=== PATIENT | female | born 1995 | race Hispanic/Latino ===

== ENCOUNTER 2017-10-19 10:12 | Inpatient (IN) | payer MEDICAID, OTHER, SELFPAY ==
--- NOTE | 2017-10-19 06:39 | PDOC.LDHP ---
Labor and Delivery H&P Chief complaint: scheduled section HPI: 22 yo @36.3 wks here for a scheduled c section 2/2 cholestasis of . Pt also had a primary cs done with first baby in [place], unknown reason, which was at 38 weeks and the baby was 5 pounds at that time. She denies VB, LOF, dysuria, discharge; endorses good movement. Current gestational age (weeks): 36 (36.3) Due date: 11/13/17 Dating criteria: second trimester ultrasound (20 wk sono; transfer of care from [place] when pt was ~ 26 wks) Grav: 2 Para: 1 OB History Details: 06/06/2015 cs @ 38 wks; 5 lb Current complications: other (cholestasis of ) Abnormal US findings: No (18% hadlock; fundal placenta) Previous surgical history: other (prior cs, unknown uterine incision) Social history: none - OB Labs Antibody Screen: negative HIV: negative RPR: positive HEPSAg: negative 1 hour GCT: negative GBS: negative Additional Labs: zika negative dengue fever negative urine culture negative Pap NILM on 08/20 HPV negative gonorrhea negative chlamydia negative CMP: AT 256 Hepatitis panel: Alk phosph: 247 Hep A total antibody Reactive, but IgM non-reactive--c/w past exposure or vaccination; no evidence of current acute hep a infection Hep C nonreactive Bile acids 11 - Assessment L&D Assessment: scheduled repeat section - Plan Plan: to OR for section, informed consent obtained, anesthesia consult for pain management <Abby Ordonez - Last Filed: 10/19/17 06:54> Current medications: pre- vitamins Previous surgical history: other (prior cs, LTCS) - Physical Exam Vital signs reviewed and normal: yes General: NAD, resting Heart: RRR Lungs: nonlabored breathing Abdomen: NTTP Extremeties: no edema FHT: category 1 (Baseline in the 130s, moderate variability, accels present, no decels) - OB Labs Blood type: O RH: positive - Plan -: This is a 22 yo at 36.3 weeks Cholestasis with associated puritis -We are admitting to L&D for rLTCS. We will have neonatology present at the time of delivery for any resuscitative measures that are needed. <Carlos Manuel Mcdermott - Last Filed: 10/19/17 11:48> Allergies/Adverse Reactions: Allergies Allergy/AdvReac Type Severity Reaction Status Date / Time No Known Allergies Allergy Verified 10/19/17 11:26
[~2017-10-19 10:12] MED LIST: Acetaminophen 500 MG TAB PO PRN; Bicitra 30 ML UDCUP PO SCH; CEFAZOLIN/Water 2 GM/20 ML SYRINGE SLOW IVP SCH; Ondansetron HCl/PF 4 MG/2 ML Vial IVP PRN; Promethazine HCl 25 MG/ML VIAL IM PRN
[2017-10-19 11:16] LABS: Hemoglobin 12.1 g/dL (12.0-16.0); Mean Corpuscular HGB CONC 34.3 g/dL (32.0-36.0); Mean Corpuscular Hemoglobin 30.5 pg (27.0-31.0); Mean Platelet Volume 9.6 fL (7.4-10.4); Platelet Count 170 thou/uL (130-400); RBC Distribution Width 12.3 % (11.5-14.5); Red Blood Cell (RBC) Count 3.95 mill/uL (4.20-5.40); White Blood Cell (WBC) Count 8.6 thou/uL (4.8-10.8)
[2017-10-19] MEDS ORDERED: Oxytocin 10 UNITS/ML VIAL ONE ×2 (11:33→13:44)
[2017-10-19] MEDS ORDERED: Bupivacaine 0.75% W/DEXTROSE 8.25% 2 ML AMP ONE (11:34)
[2017-10-19] MEDS ORDERED: Morphine PF 1 MG/ML SYR ONE (11:34)
[2017-10-19] MEDS ORDERED: Lidocaine 1% PF 5 ML VIAL ONE (11:35)
[2017-10-19] MEDS ORDERED: Ondansetron HCl/PF 4 MG/2 ML Vial ONE ×2 (11:39→14:48)
[2017-10-19 11:54] LABS: HBSAg Index 0.17 S/CO (0-0.99); Hep B Surf Ag Non-Reactive S/CO (NonReactive); Syphilis Antibody Nonreactive (Nonreactive); Syphilis Antibody Index 0.07 S/CO (<1.00 Non-Reactive)
[2017-10-19] MEDS ORDERED: ePHEDrine/0.9% NaCl/PF SYRINGE 50 mg/10 ml ONE (11:57)
[2017-10-19] MEDS ORDERED: Midazolam HCl 2 mg/2 ml Vial ONE (12:58)
[2017-10-19] MEDS ORDERED: Naloxone HCl 0.4 mg/ml Vial IVP PRN ×2 (13:16)
[2017-10-19] MEDS ORDERED: Eucerin (Mineral Oil/Petrolatum,White) 30 gm Jar TOP PRN (13:16)
[2017-10-19] MEDS ORDERED: diphenhydrAMINE 50 MG/ML VIAL IVP PRN (13:16)
[2017-10-19] MEDS ORDERED: Promethazine HCl 25 MG SUPP PR PRN (13:16)
[2017-10-19] MEDS ORDERED: Naloxone HCl 0.4 mg/ml Vial IV PRN (13:16)
[2017-10-19] MEDS ORDERED: Ondansetron HCl/PF 4 MG/2 ML Vial IVP PRN (13:16)
[2017-10-19] MEDS ORDERED: Ketorolac Tromethamine 30 MG/ML VIAL IVP PRN (13:16)
[2017-10-19] MEDS ORDERED: Promethazine HCl 25 MG/ML VIAL IM PRN (13:16)
[2017-10-19] MEDS ORDERED: Communication Order-Pharmacy FS SCH (13:30)
[2017-10-19] MEDS ORDERED: Acetaminophen 325 MG TAB PO PRN (13:40)
[2017-10-19] MEDS ORDERED: Adacel (T-DAP) 0.5 ML VIAL IM ONE (13:40)
[2017-10-19] MEDS ORDERED: diphenhydrAMINE 25 MG CAP PO PRN (13:40)
[2017-10-19] MEDS ORDERED: Ketorolac Tromethamine 30 MG/ML VIAL ONE (15:07)
[2017-10-19] MEDS ORDERED: Ibuprofen 800 MG TAB PO SCH (16:30)
--- NOTE | 2017-10-19 17:46 | PDOC.OPDEL ---
OB Operative/Delivery Note Delivery Dr/Surgeon: Maggie Ordonez Assist: Attending: Pre-Delivery Diagnosis: medically indicated induction (cholestasis of ) Procedure/Post Delivery Dx: repeat low transverse CS Weeks gestation: 36 (36.3) Anesthesia: spinal - Findings A Sex: female - 1 min: 9 - 5 min: 9 - Additional Findings/Plan Placenta delivered: spontaneous findings: low transverse hysterotomy without extension Estimated blood loss: 700 Compilations/Other Findings: Date of Procedure:10/19/2017 Resident Surgeon: Dr. Ordonez Utility Aircrewman Surgeon: Dr. Serrano Attending Surgeon: Dr. Cornejo Procedure: Repeat low transverse caesarean section Preoperative Diagnosis: 1)Term intrauterine 2)Cholestasis of 3)Previous Postoperative Diagnosis: 1)Term intrauterine 2)Cholestasis of 3)Previous Anesthesia: spinal Indications: The patient is a 22 year old G2,P1001 female at 36.3 weeks gestation who presents for a repeat scheduled 2/2 cholestasis of . Procedure in Detail: After risks, benefits, and alternatives were explained to the patient, she gave informed consent. Pre-operative antibiotics included Cefazolin 2 gram IV. The patient was taken to the operating room and spinal anesthesia was initiated. She was placed in the supine position with a left tilt and prepped and draped in usual sterile fashion. A Pfannenstiel incision was made with a scalpel and carried down to the level of the fascia which was sharply nicked. The fascial cut was extended bilaterally with Arriaga sissors. The inferior and superior edges of the cut fascial edges were elevated with Mamie clamps and the underlying rectus muscles were sharply and bluntly dissected free. The recti were divided digitally and retracted manually. The peritoneum was entered bluntly and retracted manually. Asael-O retractor placed. Bladder flap was created with Metzenbaum scissors. A low transverse score was made with the scalpel and the uterus was entered in the midline with the scalpel. Clear fluid was seen. The hysterotomy was extended manually. The was noted to be vertex and was easily delivered by fundal pressure. Mouth and nares were bulb suctioned. Cord clamped and cut and grossly normal male/female infant was handed to waiting nurse. Cord blood was obtained. Placenta was manually extracted, found to be intact with 3 vessel cord and discarded. The uterus was externalized and the endometrium was curetted with a dry lap. The bladder blade was replaced and the uterus was closed with a running locking #1 Monocryl suture. Following this hemostasis was noted. The abdomen was irrigated with saline and suctioned free of clots. The uterus was internalized and the hysterotomy was again noted to be hemostatic. The fascia was closed with a running non-locking 0-Vicryl suture. The subcutaneous tissue was irrigated and there were no bleeders. The subcutaneous tissue was closed with 4 simple interrupted 2-0 plain sutur. The skin was approximated with adri and a pressure dressing was placed. All counts were correct. The patient tolerated the procedure well and was taken to the recovery room in stable condition. Estimated Blood Loss: 910 ml Complications: None Specimens: Cord blood sent to lab for blood type Findings: Grossly normal female infant with apgars of 9 and 9. Grossly normal placenta with 3 vessel cord discarded. Drains: Couch to gravity draining clear urine. UOP: 700ml Post delivery plan: routine recovery
[2017-10-19] MEDS: Lactated Ringer's 1,000 ML IV SCH (21:55)
[2017-10-20] MEDS ORDERED: Acetaminophen/Codeine 30-300mg Tablet PO PRN (01:30)
[2017-10-20] MEDS: Acetaminophen/Codeine 30-300mg Tablet PO PRN ×2 (03:01→08:49)
[2017-10-20 05:47] LABS: Mean Corpuscular HGB CONC 34.5 g/dL (32.0-36.0); Mean Corpuscular Hemoglobin 30.8 pg (27.0-31.0); Mean Corpuscular Volume 89.2 fL (78.0-98.0); Platelet Count 153 thou/uL (130-400); RBC Distribution Width 12.2 % (11.5-14.5); Red Blood Cell (RBC) Count 3.24 mill/uL (4.20-5.40); White Blood Cell (WBC) Count 10.7 thou/uL (4.8-10.8)
--- NOTE | 2017-10-20 07:55 | PDOC.PP ---
Post Progress Note Post Day #: 1 Subjective: 22 yo f now P2002 s/p repeat low transverse section @36.3wks 2/ 2 cholestasis of . Pt endorses mild bleeding, mininal pain, and states she has ambulated to the bathroom and tolerated clears yesterday. she was anout to eat breakfast. PO intake tolerated: yes Flatus: yes Ambulation: yes Vital Signs (12 hours) Temp Pulse Resp BP 10/20/17 04:15 98.6 F 54 L 18 10/20/17 02:00 18 10/20/17 00:00 98.8 F 58 L 20 114/56 L 10/19/17 22:13 18 10/19/17 20:30 98.5 F 54 L 20 126/63 Weight Weight 46.266 kg - Physical Examination General: NAD Cardiovascular: no m/r/g, RRR Respiratory: clear to auscultation bilaterally, non-labored breathing Abdominal: + bowel sounds, lochia (minimal), appropriately TTP Skin: CS incision dry & intact, no rash Neurological: no gross focal deficits Psychiatric: A&Ox3, normal affect Result Diagrams: 10/20/17 04:55 Additional Labs: Post Labs Blood Type O POSITIVE 10/19/17 11:06 Hep Bs Antigen Non-Reactive S/CO (NonReactive) 10/19/17 11:06 (1) delivery, delivered Code(s): O60.10X0 - LABOR W DELIVERY, UNSP TRIMESTER, UNSP Status: Acute (2) Cholestasis during Code(s): O26.619 - LIVER AND BILIARY TRACT DISORD IN , UNSP TRIMESTER; K83.1 - OBSTRUCTION OF BILE DUCT Status: Acute - Assessment/Plan 22 yo now 2000 s/p repeat low transverse cs at 36.3wks 2/2 cholestasis of . 1.)sIUP delivered at 36.6wks d/t cholestasis of . - encourage ambulation - advance diet as tokerated today. - pain controlled with T3 prn and motrin scheduled. - passing flatus, cabello dcd, has not stooled yet. continue to monitor I/Os. - H/H 12->10/35->28 2.) maternal hx of cholestasis of - -denies itching this am
[2017-10-20] MEDS: Ibuprofen 800 MG TAB PO SCH ×4 (08:50→21:49)
[2017-10-20] MEDS: Prenatal Vitamin 1 TAB PO SCH (08:50)
[2017-10-20] MEDS: Docusate Calcium (SURFAK) 240 MG CAP PO SCH ×3 (08:51→21:49)
[2017-10-20] MEDS: Ferrous Sulfate 325 MG TAB PO SCH ×3 (08:57→23:07)
[2017-10-20 13:38] VITALS: BMI 17.6
[2017-10-20] MEDS: Lactated Ringer's 1,000 ML IV SCH ×3 (15:21→19:20)
[2017-10-21] MEDS: Simethicone Chewable 80 MG TAB PO PRN ×2 (02:09→17:51)
[2017-10-21] MEDS: Lactated Ringer's 1,000 ML IV SCH (03:55)
[2017-10-21] MEDS: Ibuprofen 800 MG TAB PO SCH ×2 (06:04→14:22)
--- NOTE | 2017-10-21 08:00 | PDOC.PP ---
Post Progress Note Post Day #: 2 Subjective: 22 yo now 2000 @ 36.3wks s/p repeat low transverse section. POD #2 Doing well. Minimal pain and lochia. Passing flatus. Has not stooled yet. PO intake tolerated: yes Flatus: yes Ambulation: yes Vital Signs (12 hours) Temp Pulse Resp BP BP Pulse Ox 10/21/17 04:20 98.1 F 63 14 112/56 L 10/21/17 00:40 97.9 F 73 16 101/58 L 10/20/17 20:10 98.1 F 73 14 112/66 98 Weight Admit Weight 46.72 kg Weight 46.72 kg - Physical Examination General: NAD Cardiovascular: no m/r/g, RRR Respiratory: clear to auscultation bilaterally Abdominal: + bowel sounds, lochia (minimal) Skin: CS incision dry & intact Neurological: no gross focal deficits Psychiatric: A&Ox3, normal affect Result Diagrams: 10/20/17 04:55 Additional Labs: Post Labs Blood Type O POSITIVE 10/19/17 11:06 Hep Bs Antigen Non-Reactive S/CO (NonReactive) 10/19/17 11:06 (1) delivery, delivered Code(s): O60.10X0 - LABOR W DELIVERY, UNSP TRIMESTER, UNSP Status: Acute (2) Cholestasis during Code(s): O26.619 - LIVER AND BILIARY TRACT DISORD IN , UNSP TRIMESTER; K83.1 - OBSTRUCTION OF BILE DUCT Status: Acute - Assessment/Plan 22 yo now 2000 s/p repeat low transverse cs at 36.3wks 2/2 cholestasis of . 1.)sIUP delivered at 36.6wks d/t cholestasis of . - encourage ambulation - passing flatus; has not passed stool yet - tolerating normal diet - Tylenol 3 prn pain and ibuprofen 800mg q8h scheduled - Will send prescription for ibuprofen q8h ashanti - H/H 12->->28 - prepped for discharge >48 hours 2.) maternal hx of cholestasis of - -denies itching
[2017-10-21] MEDS: Ferrous Sulfate 325 MG TAB PO SCH (08:58)
[2017-10-21] MEDS: Prenatal Vitamin 1 TAB PO SCH (08:58)
[2017-10-21] MEDS: Docusate Calcium (SURFAK) 240 MG CAP PO SCH (08:58)
[2017-10-21 12:30] VITALS: TEMP 98
[2017-10-21 12:31] VITALS: BP 120/58
[2017-10-21] MEDS: Acetaminophen/Codeine 30-300mg Tablet PO PRN (17:50)
== END 2017-10-21 17:52 | disposition home or self-care (01) | DRG 765 ==
LOC: L&D 10:12 → 3SW 16:05
PROVIDERS: ADMIT Family Medicine; ATTEND Family Medicine
PROC: 10D00Z1 Extraction of Products of Conception, Low, Open Approach (ICD-10-PCS; principal; 2017-10-19)
PROC: 10907ZC Drainage of Amniotic Fluid, Therapeutic from Products of Conception, Via Natural or Artificial Opening (ICD-10-PCS; 2017-10-19)
DX: O34.211 Maternal care for low transverse scar from previous cesarean delivery (principal); O60.14X0 Preterm labor third trimester with preterm delivery third trimester, not applicable or unspecified; K83.1 Obstruction of bile duct; O26.62 Liver and biliary tract disorders in childbirth; Z3A.36 36 weeks gestation of pregnancy; Z37.0 Single live birth
CPT/HCPCS: 36415; 51702; 85027; 86780; 86850; 86900; 86901; 87340; 90715; J1885; J2001; J2250; J2274; J2405; J2590; J3490

== ENCOUNTER 2019-03-17 05:47 | Inpatient (IN) | payer MEDICAID, OTHER, SELFPAY ==
[2019-03-17] MEDS ORDERED: HYDROcodone/Acetaminophen 5/325 mg Tablet PO PRN (06:13)
[2019-03-17] MEDS ORDERED: Ondansetron PF 4 MG/2 ML Vial IVP PRN ×2 (06:13→09:34)
[2019-03-17] MEDS ORDERED: Lanolin Ointment 7 GM TUBE TOP PRN (06:13)
[2019-03-17] MEDS ORDERED: Zolpidem Tartrate 5 MG TAB PO PRN (06:13)
[2019-03-17] MEDS ORDERED: hydrALAZINE 20 MG/ML VIAL SLOW IVP PRN ×2 (06:13→11:34)
[2019-03-17] MEDS ORDERED: Bisacodyl 10 MG SUPP PR PRN (06:13)
[2019-03-17] MEDS ORDERED: Misoprostol 200 MCG TAB PR PRN (06:13)
[2019-03-17] MEDS ORDERED: Promethazine HCl 25 MG/ML VIAL IM PRN ×3 (06:13→09:34)
[2019-03-17] MEDS ORDERED: Methylergonovine 0.2 MG/ML VIAL IM PRN (06:13)
[2019-03-17] MEDS ORDERED: Methylergonovine 0.2 MG TAB PO PRN (06:13)
[2019-03-17] MEDS ORDERED: NS / Oxytocin 40 units/1000ml 1,000 ML IV SCH (06:15)
[2019-03-17] MEDS ORDERED: CEFAZOLIN 2 GM in Premix Bag 1 BAG IVPB SCH (06:15)
--- NOTE | 2019-03-17 06:22 | PDOC.FPROB ---
Addendum entered and electronically signed by Florence Pop MD 03/17/19 07:26 : Additional problems: h/o placenta previa this : - Aware, resolved per MFM follow-up sonos. Repeat bedside US today shows anterior placenta but no previa and cephalic presentation. - Will type & cross 2U of PRBCs & have a Bakri balloon and PPH meds readily available if needed. Original Note: FMR OB H&P: HPI - History of Present Illness Chief Complaint: RCSX Indentification: 24yo @ 39.4 wks by LMP c/w 11 wk sono History of Present Illness: 24 yo F @ 39.4 wks by LMP c/w 11 wk US with Low BMI, h/o cholestasis in , h/o C/S x2, h/o SGA infants, h/o delivery 2/2 cholestasis who presents for repeat . She endorses good movement. She has had no loss of fluid or bleeding. She did state she has a greenish discharge. She has a cough, subjective fever, and headache that started yesterday. She says the headache is bi-temporal and at the back of the neck. She has not taken any medications for it. Primary Care Physician: [facility]- Florence Pop, PGY-2 FMR OB H&P: Current - Care : 3 Para: 2 Gestational age: 39.4 weeks Due date: 03/23/2019 Dating Criteria: LMP c/w 11 wk sono Total weight gain: 21 lbs - OB Labs Blood type: O RH: positive Antibody Screen: negative HIV: negative RPR: negative HepBsAg: negative Rubella: immune Quad screen: negative (Progenity negative) Urine drug screen: not done Gonorrhea: negative Chlamydia: negative 1 hour gtt: 88 GBS: positive H&H: 11.7/34.8 Platelets: 187 Additional labs: INR .9, Prothrombin 10.8, PTT 29.4 Uric Acid 3.5 Total Bile Acids 2 TSH .944 - First Trimester Ultrasound First trimester: 11 wk sono. MARITO c/w LMP - Anatomy Survey Anatomy survey: 18.5 weeks. EFW 43%, left lateral complete placent previa, no sign accreta - Additional Ultrasound Additional: [facility] 10/22/18 Growth 43%. Left lateral complete placenta previa MFM 10/1/19 25 weeks. EFW 713 g. Hadlock 35%. Right urinary tract dilatation measuring 10.9 mm MFM1 Hadlock 55%, Placent previa resolved. Isolate R urinary tract dilatation MFM 02/04/19 Hadlock 38%, Right UTD. MFM 03/04/19 Hadlock 27%. Placenta anterior lef. PLacenta previa resolved. Rt renal AP measurement is 15.2 mm. FMR OB H&P: History - Past Medical History PMH: none - OB History OB History: 10/19/17 RCsx, cholistasis of 06/06/15 Primary , failure to progress - Surgical History Sx History: C/S x2 - Social History Social History: Denies tobacco, alcohol or illicit drug use. - Family History Family History: None FMR OB H&P: Medications - Current Home Medications: Medication Instructions Recorded Confirmed Type Vit Calc,Iron,Folic 1 each PO DAILY 10/19/17 10/19/17 History [ Vitamins] Allergies/Adverse Reactions: Allergies Allergy/AdvReac Type Severity Reaction Status Date / Time No Known Allergies Allergy Verified 03/17/19 06:19 FMR OB H&P: ROS - Review of Systems General: reports: fever/chills Eyes: denies: vision changes ENT: reports: sore throat. denies: nasal congestion, rhinorrhea Cardiovascular: denies: chest pain, edema Respiratory: reports: cough. denies: congestion, shortness of breath Gastrointestinal: denies: abdominal pain, nausea, vomiting, diarrhea, constipation Genitourinary (Female): reports: vaginal discharge. denies: dysuria, vaginal bleeding, contractions Musculoskeletal: denies: pain, tenderness Neurologic: reports: headache. denies: numbness, weakness Integumentary: denies: itching, rash Hematologic/Lymphatic: denies: enlarged lymph nodes FMR OB H&P: Vital Signs - Heart Tones Baseline: 140 Variability: moderate Acceleration: absent Deceleration: absent Category: category 1 [place] contractions every: 5 minutes FMR OB H&P: Physical Exam - Physical Exam General: NAD, awake, alert and oriented HEENT: normocephalic and atraumatic, PERRLA, EOMI, MMM, normal nasal mucosa, oropharynx clear Neck: trachea midline, no LAD Heart: RRR, normal S1/S2, no murmurs/rubs/gallops, pulses present General: CTAB, no respiratory distress, good air movement, no rales/rhonchi, no wheezing Abdomen: soft, gravid, non-tender, bowel sound present Musculoskeletal: pulses present Neurological: cranial nerves II through XII intact, no focal deficit Skin: no rash Lymphatic: no unusual bruising or bleeding Psychiatric: normal mood and affect FMR OB H&P: A/P - Problem List (1) Term Current Visit: Yes Status: Acute Code(s): Z34.90 - ENCNTR FOR SUPRVSN OF NORMAL , UNSP, UNSP TRIMESTER (2) Low BMI Current Visit: Yes Status: Acute Code(s): ASU2675 - (3) Viral URI Current Visit: Yes Status: Acute Code(s): J06.9 - ACUTE UPPER RESPIRATORY INFECTION, UNSPECIFIED Disposition: 24 yo F @ 39.4 wks by LMP c/w 11 wk US with Low BMI, h/o cholestasis in , h/o C/S x2, h/o SGA infants, h/o delivery 2/2 cholestasis who presents for repeat . Term for [facility] rLTCS: - s/p C/S x2. - Ancef given & IVFs started. - Continue routine pre-C/S care. h/o C/S x2 - Aware, rLTCS today. h/o delivery 2/2 cholestasis - Aware, medically indicated delivery. Has not required PPX this . Low BMI - Aware, encouraged weight gain & increased calories for duration of . h/o cholestasis in prior - Aware, no elevated bile acids this . h/o SGA infants - Aware, mom has small body habitus. Viral URI -Cough, Sore throat, Subjective Fever, Tension ZHOU -Ordered Flu Concern for UT malformation: - Patient has been following with MFM who noted a right-sided UT dilatation. Recommended notifying Neonatology upon delivery & getting a repeat renal US on DOL #2 to determine follow-up. Discussion: Date/Time: 03/17/19 0620 This H&P was discussed with [] and [] who agree with the above documentation and plan. Addendum - Attending - Attending Attestation Date/Time: 03/17/19 0519 I personally evaluated the patient and discussed the management with Dr. Holman , Nathaniel, and Donn I agree with the History, Examination, Assessment and Plan documented above with any addition or exceptions noted below. 24 yo female at 39.4 wks by LMP/11.0 wks Plan for repeat LTCS. Patient originally had dx of placenta previa. Now resolved. MFM did not see evidence of pathology on sono. Bedside sono revealed anterior placenta. Not low lying. Cephalic presentation. Grossly normal SAMY. Will have hemorrhage cart near by with blood on hold due to slight increase in occult accreta. Borderline platelets on admission labs. Trend. SGA fetus with right sided pyelectasis. Will need renal sono. Will likely resolve. Monitor. Marcelle
[2019-03-17 06:28] VITALS: BMI 20.9
[2019-03-17 06:43] LABS: Hemoglobin 13.2 g/dL (12.0-16.0); Mean Corpuscular HGB CONC 33.6 g/dL (32.0-36.0); Mean Corpuscular Hemoglobin 28.3 pg (27.0-31.0); Mean Corpuscular Volume 84.2 fL (78.0-98.0); Mean Platelet Volume 9.4 fL (7.4-10.4); Platelet Count 153 thou/uL (130-400); Red Blood Cell (RBC) Count 4.68 mill/uL (4.20-5.40); White Blood Cell (WBC) Count 9.6 thou/uL (4.8-10.8)
[2019-03-17] MEDS: Lactated Ringer's 1,000 ML IV SCH ×2 (07:10→11:07)
[2019-03-17] MEDS ORDERED: Bicitra 30 ML UDCUP PO SCH (07:15)
[2019-03-17] MEDS ORDERED: Oxytocin 10 UNITS/ML VIAL ONE ×3 (07:17→08:32)
[2019-03-17] MEDS ORDERED: PHENYLEPHRINE-NS 100 MCG/ML 10 ML SYRINGE ONE ×2 (07:17→08:29)
[2019-03-17] MEDS ORDERED: ePHEDrine/0.9% NaCl/PF SYRINGE 50 mg/10 ml ONE ×2 (07:17→08:27)
[2019-03-17] MEDS ORDERED: Fentanyl 100 MCG/2 ML VIAL ONE (07:18)
[2019-03-17] MEDS ORDERED: MORPHINE 5 MG/10 ML PF VIAL ONE (07:19)
[2019-03-17 07:22] LABS: Syphilis Antibody Nonreactive (Nonreactive); Syphilis Antibody Index 0.12 S/CO (<1.00 Non-Reactive)
[2019-03-17 07:23] LABS: HBSAg Index 0.17 S/CO (0-0.99); Hep B Surf Ag Non-Reactive S/CO (NonReactive)
[2019-03-17] MEDS ORDERED: Ondansetron PF 4 MG/2 ML Vial ONE (07:41)
[2019-03-17] MEDS ORDERED: Methylergonovine 0.2 MG/ML VIAL ONE (08:25)
[2019-03-17] MEDS ORDERED: Metoclopramide HCl 10 MG/2 ML VIAL ONE (08:37)
[2019-03-17] MEDS ORDERED: Midazolam HCl 2 mg/2 ml Vial ONE (08:47)
[2019-03-17] MEDS ORDERED: diphenhydrAMINE 50 MG/ML VIAL IVP PRN (09:34)
[2019-03-17] MEDS ORDERED: Naloxone HCl 0.4 mg/ml Vial IVP PRN ×2 (09:34)
[2019-03-17] MEDS ORDERED: Promethazine HCl 25 MG SUPP PR PRN (09:34)
[2019-03-17] MEDS ORDERED: Ondansetron HCl/PF 4 MG/2 ML Vial IVP PRN (09:34)
[2019-03-17] MEDS ORDERED: Naloxone HCl 0.4 mg/ml Vial IV PRN (09:34)
[2019-03-17] MEDS ORDERED: Promethazine HCl 25 MG/ML VIAL SLOW IVP PRN (09:34)
[2019-03-17] MEDS ORDERED: Communication Order-Pharmacy FS SCH (09:45)
[2019-03-17] MEDS: Ferrous Sulfate 325 MG TAB PO SCH ×2 (11:08→19:06)
[2019-03-17] MEDS: Prenatal Vitamin 1 TAB PO SCH (11:08)
[2019-03-17] MEDS: Docusate Calcium (SURFAK) 240 MG CAP PO SCH (11:08)
[2019-03-17] MEDS ORDERED: Ketorolac Tromethamine 30 MG/ML VIAL ONE (11:28)
[2019-03-17] MEDS: Ketorolac Tromethamine 30 MG/ML VIAL IVP PRN (11:33)
--- NOTE | 2019-03-17 12:53 | PDOC.PP ---
Post Progress Note Post Day #: 0 Subjective: Patient s/p 4 hours after rLTCS this morning, after which she did require some Methergine. EBL of approx. 750 mL. She is resting comfortably. Says her pain has improved since being out of OR, rating 4 out of 10. Has bled to about half of a pad, no clots seen. Urine output of 300 mL prior to surgery per nursing, 200 mL while with anesthesia in OR, and 50 mL while on post- floor. There is question about whether or not bag was emptied prior to arriving on unit so UOP possibly greater volume. PO intake tolerated: yes Flatus: no Ambulation: no Vital Signs (12 hours) Temp Pulse Resp BP Pulse Ox 03/17/19 12:05 99.2 F 74 18 112/63 98 03/17/19 06:06 98.3 F 109 H 18 126/75 96 Weight Weight 48.534 kg - Physical Examination General: NAD Cardiovascular: no m/r/g, RRR Respiratory: clear to auscultation bilaterally, non-labored breathing Abdominal: + bowel sounds, no distention, appropriately TTP Fundus firm & at: level of umbilicus Extremities: negative homans (B) (no edema, pulses full and equal) Skin: CS incision dry & intact, no rash Perineum: blood filled to half of pad, no clots seen Neurological: no gross focal deficits Psychiatric: A&Ox3, normal affect Result Diagrams: 03/18/19 05:46 Additional Labs: Post Labs Blood Type O POSITIVE 03/17/19 06:34 Hep Bs Antigen Non-Reactive S/CO (NonReactive) 03/17/19 06:34 - Assessment/Plan 24 yo F @ 39.4 wks by LMP c/w 11 wk US with Low BMI, h/o cholestasis in , h/o C/S x2, h/o SGA infants, h/o delivery 2/2 cholestasis who presents for repeat . #Term for [facility] rLTCS: - s/p C/S x2, now x3 with delivery today - Ancef given & IVFs started. - Continue routine post-C/S care. - monitor I/O, UOP, signs/sx bleeding h/o delivery 2/2 cholestasis - Aware, medically indicated delivery. Has not required PPX this . Low BMI - Aware, encouraged weight gain & increased calories for duration of . h/o cholestasis in prior - Aware, no elevated bile acids this . h/o SGA infants - Aware, mom has small body habitus. Viral URI -Cough, Sore throat, Subjective Fever, Tension ZHOU -Ordered Flu Concern for UT malformation: - Patient has been following with MFM who noted a right-sided UT dilatation. Recommended notifying Neonatology upon delivery & getting a repeat renal US on DOL #2 to determine follow-up. Dispo: Recovering well, pain well controlled. Continue routine post- care. Addendum - Attending - Attending Attestation Date/Time: 03/17/19 0414 I personally evaluated the patient and discussed the management with Dr. Martínez I agree with the History, Examination, Assessment and Plan documented above with any addition or exceptions noted below. Doing well after RLTCS. Pain controlled. Lochia appropriate. Tolerating PO. Flu swab positive for flu B. Will start tamiflu. Discussed ppx to children at home. Use mask when holding . Continue to monitor UOP. Remove bandage in AM. Marcelle
[2019-03-17] MEDS: Ibuprofen 800 MG TAB PO SCH (16:19)
[2019-03-17] MEDS: Oseltamivir 75 MG CAP PO SCH (21:18)
--- NOTE | 2019-03-17 21:56 | PDOC.OPDEL ---
OB Operative/Delivery Note Delivery Dr/Surgeon: Florence Pop MD/Mildred Weaver MD Assist: Burton Serrano DO Weeks gestation: 39 (39.4) - Additional Findings/Plan Placenta delivered: manual removal findings: low transverse hysterotomy with extension Estimated blood loss: ~ 600mL Compilations/Other Findings: Date of Procedure: 03/17/19 Resident Surgeon: Dr. Florence Pop MD Cotton Candy Maker Surgeon: Dr. Burton Serrano DO Attending Surgeon: Dr. Mildred Weaver MD Procedure: Repeat low transverse caesarean section Preoperative Diagnosis: 1)Term intrauterine 2)Previous x2 3)h/o placenta previa this , resolved 4)h/o cholestasis in prior 5)h/o SGA infants 6)Underweight/Low BMI Postoperative Diagnosis: 1)same as above 2)Previous x2 3)h/o placenta previa this , resolved 4)h/o cholestasis in prior 5)h/o SGA infants 6)Underweight/Low BMI 7)Uterine atony Anesthesia: spinal Indications: The patient is a 24 year old G3,P1102 female at 39.4 weeks gestation by LMP c/w 11 week who presents for a repeat scheduled . Procedure in Detail: After risks, benefits, and alternatives were explained to the patient, she gave informed consent. Pre-operative antibiotics included Cefazolin 2 gram IV. The patient was taken to the operating room and spinal anesthesia was initiated. She was placed in the supine position with a left tilt and prepped and draped in usual sterile fashion. A Pfannenstiel incision was made with a scalpel and carried down to the level of the fascia which was sharply nicked. The fascial cut was extended bilaterally with Arriaga sissors. The inferior and superior edges of the cut fascial edges were elevated with Mamie clamps and the underlying rectus muscles were sharply and bluntly dissected free. The recti were divided digitally and retracted manually. The peritoneum was entered bluntly and an Asael-O retractor was placed. A low transverse score was made with the scalpel and the uterus was entered in the midline with the scalpel. Clear fluid was seen. The hysterotomy was extended manually. The infant was noted to be vertex and was easily delivered by fundal pressure. Mouth and nares were bulb suctioned. Cord clamped and cut and grossly normal male was handed to waiting nurse. Cord blood was obtained. Placenta was manually extracted, found to be intact with 3 vessel cord and discarded. The uterus was externalized and the endometrium was curetted with a dry lap. Of note , upon externalization the uterus was noted to be boggy so a 0.2mg dose of methergine was given IV for uterine atony. In addition, an ~2cm right, inferior uterine incision extension was noted and repaired using a running locking #1 monocryl suture. The uterine incision was then repaired using the same suture in a similar fashion. Following this hemostasis was noted and the incision was coated with Ayla to ensure hemostasis. The abdomen was irrigated with saline and suctioned free of clots. The uterus was internalized and the hysterotomy was again noted to be hemostatic. The Asael-O retractor was removed and the fascia was closed with a running non-locking 0-PDS suture. The subcutaneous tissue was irrigated and there were no bleeders. The skin was approximated with adri and a pressure dressing was placed. All counts were correct. The patient tolerated the procedure well and was taken to the recovery room in stable condition. Estimated Blood Loss: ~600 ml Complications: 1)Uterine atony 2) ~2cm right inferior uterine incision extension, s/p repair Specimens: Cord blood sent to lab for blood type Findings: Grossly normal male with Apgars of 8 and 9. Grossly normal placenta with 3 vessel cord discarded. Drains: Couch to gravity draining clear urine Post delivery plan: routine recovery Addendum - Attending - Attending Attestation Date/Time: 03/18/19 0902 I was present and participated in the above documented procedure. Complications as listed above. Noted to have minor subcutaneous and fascial adhesions only. Ok to have repeat delivery if patient desires. Continue routine pp care. Marcelle
[2019-03-18] MEDS: Lactated Ringer's 1,000 ML IV SCH ×3 (01:01→18:33)
[2019-03-18] MEDS: Ibuprofen 800 MG TAB PO SCH ×4 (01:01→21:48)
[2019-03-18] MEDS: Docusate Calcium (SURFAK) 240 MG CAP PO SCH ×3 (01:01→21:48)
[2019-03-18] MEDS ORDERED: Sodium Chloride 0.9% 10 ML ONE ×2 (03:13→03:21)
[2019-03-18] MEDS: Ketorolac Tromethamine 30 MG/ML VIAL IVP PRN (03:17)
[2019-03-18 06:04] LABS: Hemoglobin 9.7 g/dL (12.0-16.0); Mean Corpuscular HGB CONC 31.8 g/dL (32.0-36.0); Mean Corpuscular Hemoglobin 27.2 pg (27.0-31.0); Mean Corpuscular Volume 85.7 fL (78.0-98.0); Mean Platelet Volume 8.8 fL (7.4-10.4); Platelet Count 137 thou/uL (130-400); RBC Distribution Width 14.1 % (11.5-14.5); Red Blood Cell (RBC) Count 3.56 mill/uL (4.20-5.40); White Blood Cell (WBC) Count 8.5 thou/uL (4.8-10.8)
--- NOTE | 2019-03-18 06:37 | PDOC.OBPPN ---
FMR OB PN: Subj - Interval History Hospital Day: 2 Day: 1 Chief Complaint: None Indentification: who is PP day #1 s/p rLTCS @ 39.4 WGA Interval History: NAEO. VS remained stable w/ only 758mL blood loss. Adequate UO. FMR OB PN: Obj - Maternal Vital signs: BP: 111/59 HR: 86 RR: 18 Tmax: 99.7F Pox: 98% on RA Wt: 48.5 kg - Urine output I&O: 03/16/19 03/17/19 03/18/19 06:59 06:59 06:59 Intake Total 1700 Output Total 2908 Balance -1208 - Lochia Lochia: moderate bleeding - Pain Management Pain scale: 4 Intervention: oral medication FMR OB PN: Exam - Physical Exam General: NAD, awake, alert and oriented HEENT: normocephalic and atraumatic, MMM, conjunctiva clear, grossly normal vision, grossly normal hearing Neck: supple, FROM Heart: RRR, normal S1/S2, no murmurs/rubs/gallops, pulses present, no edema General: CTAB, no respiratory distress, good air movement, no rales/rhonchi, no wheezing, no retractions Abdomen: soft, fundus(cm) (firm just above umbilicus), bowel sound present, other (appropriately tender) Musculoskeletal: FROM in all four extremities Neurological: cranial nerves II through XII intact, no focal deficit Skin: no rash, good tugor : bandage intact, incision healing well, no erythema, no edema, no drainage, appropriately tender Lymphatic: no unusual bruising or bleeding Psychiatric: intact recent and remote memory, good judgement and insight, normal mood and affect - Pelvic Exam : no discharge, no edema, normal lochia FMR OB PN: Data - Labs Lab results: Laboratory Results - last 24 hr 03/17/19 03/17/19 03/17/19 06:34 06:34 06:34 WBC 9.6 RBC 4.68 Hgb 13.2 Hct 39.4 MCV 84.2 MCH 28.3 MCHC 33.6 RDW 14.0 Plt Count 153 MPV 9.4 Syphilis IgG/IgM Ab Nonreactive Hep Bs Antigen Non-Reactive Blood Type Antibody Screen Crossmatch 03/17/19 03/18/19 06:34 05:46 WBC 8.5 RBC 3.56 L Hgb 9.7 L Hct 30.5 L MCV 85.7 MCH 27.2 MCHC 31.8 L RDW 14.1 Plt Count 137 MPV 8.8 Syphilis IgG/IgM Ab Hep Bs Antigen Blood Type O POSITIVE Antibody Screen NEGATIVE Crossmatch See Detail Flu swab + for influenza B FMR OB PN: A/P - Problem List (1) Term Current Visit: Yes Status: Acute Code(s): Z34.90 - ENCNTR FOR SUPRVSN OF NORMAL , UNSP, UNSP TRIMESTER (2) Low BMI Current Visit: Yes Status: Acute Code(s): MWC9472 - (3) Acute blood loss anemia Current Visit: Yes Status: Acute Code(s): D62 - ACUTE POSTHEMORRHAGIC ANEMIA (4) Influenza B Current Visit: Yes Status: Acute Code(s): J10.1 - FLU DUE TO OTH IDENT INFLUENZA VIRUS W OTH RESP MANIFEST (5) Post-op pain Current Visit: Yes Status: Acute Code(s): G89.18 - OTHER ACUTE POSTPROCEDURAL PAIN Disposition: 24 yo F G3 now P2103 who is PP day #1 s/p rLTCS @ 39.4 wks. PP day #1 s/p rLTCS: - s/p C/S x2, now x3 with delivery yesterday - Tolerating PO, ambulating, voiding & passing gas normally but no BM. Breast feeding well. Bleeding < period with no clots noted. Pain well controlled. Will d/c IV meds & continue only PO for today. - Continue routine post-C/S care. Acute Blood loss anemia: - H/H down from 13.2/39.4 on admission to 9.7/30.5 this AM. QBL of 758 but calculated EBL 1129mL. VS stable & patient asymptomatic. - Will start on PO iron & continue PNVs & continue to monitor VS closely. Influenza B: - Flu swab + on admission. Continue tamiflu & droplet precautions. Will give scripts for close family members including 2 other children and FOB to start as well. -Tylenol PRN for fever. Low BMI - Aware, encouraged weight gain & increased calories for duration of . h/o cholestasis in prior - Aware, no elevated bile acids this . h/o SGA infants - Aware, mom has small body habitus. Concern for UT malformation: - Patient has been following with MFM who noted a right-sided UT dilatation. Recommended notifying Neonatology upon delivery & getting a repeat renal US on DOL #2 to determine follow-up. h/o delivery 2/2 cholestasis in prior - Aware, medically indicated delivery. Has not required PPX this . Dispo: Recovering well, pain well controlled. Continue routine post- care. Anticipate possible d/c in 1-2 days pending patient & infant's clinical course. Discussion: Date/Time: 03/18/19 6650 This H&P was discussed with Dr. Weaver who agrees with the above documentation and plan. Addendum - Attending - Attending Attestation Date/Time: 03/18/19 1212 I personally evaluated the patient and discussed the management with Dr. Pop I agree with the History, Examination, Assessment and Plan documented above with any addition or exceptions noted below. PPD/POD#1 Patient doing well. No acute changes overnight. Tolerating tamiflu well. Breast feeding well. Concerned about colostrum. Reassurance provided. Encouraged good hydration. Incision healing well. Afshan in place. Lochia appropriate. Pain controlled. Continue routine pp care. Marcelle
[2019-03-18] MEDS: Ferrous Sulfate 325 MG TAB PO SCH ×2 (09:24→18:21)
[2019-03-18] MEDS: Prenatal Vitamin 1 TAB PO SCH (09:24)
[2019-03-18] MEDS: Oseltamivir 75 MG CAP PO SCH ×2 (09:24→21:48)
[2019-03-18] MEDS: HYDROcodone/Acetaminophen 5/325 mg Tablet PO PRN (18:27)
[2019-03-19] MEDS: Ibuprofen 800 MG TAB PO SCH ×3 (06:20→22:32)
--- NOTE | 2019-03-19 07:50 | PDOC.OBPPN ---
FMR OB PN: Subj - Interval History Hospital Day: 3 Day: 2 Chief Complaint: None Indentification: 24YO who is PP day #2 s/p rLTCS @ 39.4 weeks Interval History: NAEO. Patient reports she is feeling well. Pain well controlled. FMR OB PN: Obj - Maternal Vital signs: BP: 110/75 HR: 91 RR: 20 Tmax: 98.6F Pox: 97% on RA Wt: 48 kg - Urine output I&O: 03/18/19 03/19/19 03/20/19 06:59 06:59 06:59 Intake Total 1700 3400 Output Total 2908 3900 Balance -1208 -500 - Lochia Lochia: minimal bleeding - Pain Management Pain scale: 4 Intervention: oral medication FMR OB PN: Exam - Physical Exam General: NAD, awake, alert and oriented HEENT: normocephalic and atraumatic, MMM, conjunctiva clear, grossly normal vision, grossly normal hearing Neck: supple Heart: RRR, normal S1/S2, pulses present, no edema, other (3/6 systolic flow murmur noted) General: CTAB, no respiratory distress, good air movement, no rales/rhonchi, no wheezing, no retractions Abdomen: soft, fundus(cm), other (appropriately tender) Musculoskeletal: FROM in all four extremities Neurological: cranial nerves II through XII intact, no focal deficit Skin: no rash, good tugor, no jaundice : incision healing well, no erythema, no edema, no drainage, appropriately tender Lymphatic: no unusual bruising or bleeding Psychiatric: intact recent and remote memory, good judgement and insight, normal mood and affect - Pelvic Exam : no discharge, no edema, normal lochia, other (stapled intact) FMR OB PN: A/P - Problem List (1) Term Current Visit: Yes Status: Acute Code(s): Z34.90 - ENCNTR FOR SUPRVSN OF NORMAL , UNSP, UNSP TRIMESTER (2) Low BMI Current Visit: Yes Status: Acute Code(s): [id number] - (3) Acute blood loss anemia Current Visit: Yes Status: Acute Code(s): D62 - ACUTE POSTHEMORRHAGIC ANEMIA (4) Influenza B Current Visit: Yes Status: Acute Code(s): J10.1 - FLU DUE TO OTH IDENT INFLUENZA VIRUS W OTH RESP MANIFEST (5) Post-op pain Current Visit: Yes Status: Acute Code(s): G89.18 - OTHER ACUTE POSTPROCEDURAL PAIN Disposition: 24 yo F G3 now P2103 who is PP day #2 s/p rLTCS @ 39.4 wks. PP day #2 s/p rLTCS: - s/p C/S x2, now x3 with delivery from Sunday - Tolerating PO, ambulating, voiding & passing gas normally but no BM. Breast feeding well. Bleeding < period with no clots noted. Pain well controlled on PO meds only. - Continue routine post-C/S care. Acute Blood loss anemia: - H/H down from 13.2/39.4 on admission to 9.7/30.5 on post-op day #1. QBL of 758 but calculated EBL 1129mL. VS remain stable & patient asymptomatic. - Will continue PO iron & continue PNVs upon d/c. Influenza B: - Flu swab + on admission. Continue tamiflu & droplet precautions. Will give scripts for close family members including 2 other children and FOB to start as well. -Tylenol PRN for fever. Low BMI - Aware, encouraged weight gain & increased calories for duration of . h/o cholestasis in prior - Aware, no elevated bile acids this . h/o SGA infants - Aware, mom has small body habitus. TAGA male this delivery. Concern for UT malformation: - Patient has been following with MFM who noted a right-sided UT dilatation. - Repeat renal US done this AM & shows severe R-sided hydronephrosis. Will consult Elmer for recommended plan of care and follow-up regarding this. h/o delivery 2/2 cholestasis in prior - Aware, medically indicated delivery. Has not required PPX this . Dispo: Recovering well, pain well controlled. Continue routine post- care. Anticipate possible d/c today or tomorrow pending patient & infant's clinical course. Addendum - Attending - Attending Attestation Date/Time: 03/19/19 2623 I personally evaluated the patient and discussed the management with Dr. Pop I agree with the History, Examination, Assessment and Plan documented above with any addition or exceptions noted below. PPD/POD#2 Patient doing well. Tolerating pain meds and tamiflu well. Lochia appropriate. No s/sx of wound complication. D/C later today vs in AM. Will need adri out by Sunday or Sunday next week. ABrayMD
[2019-03-19] MEDS: Oseltamivir 75 MG CAP PO SCH ×2 (09:33→22:32)
[2019-03-19] MEDS: Docusate Calcium (SURFAK) 240 MG CAP PO SCH ×2 (09:33→22:32)
[2019-03-19] MEDS: Prenatal Vitamin 1 TAB PO SCH (09:33)
[2019-03-19] MEDS: Ferrous Sulfate 325 MG TAB PO SCH ×2 (09:33→17:55)
[2019-03-20 01:19] VITALS: TEMP 98.1
--- NOTE | 2019-03-20 05:25 | PDOC.OBPPN ---
FMR OB PN: Subj - Interval History Hospital Day: 4 Day: 3 Chief Complaint: none Indentification: 24YO who is PP day #3 s/p rLTCS @ 39.4 WGA Interval History: Routine PP course. VS WNLs since delivery. Pain well controlled. FMR OB PN: Obj - Maternal Vital signs: BP: 111/644 HR: 68 RR: 20 Tmax: 98.1F Pox: 97% on RA Wt: 48 kg - Urine output I&O: 03/18/19 03/19/19 03/20/19 06:59 06:59 06:59 Intake Total 1700 3400 Output Total 2908 3900 Balance -1208 -500 - Lochia Lochia: minimal bleeding - Pain Management Intervention: oral medication FMR OB PN: Exam - Physical Exam General: NAD, awake, alert and oriented HEENT: normocephalic and atraumatic, grossly normal vision, grossly normal hearing Neck: supple Heart: RRR, no edema, other (3/6 systolic flow murmur heard best @ R upper sternal border) General: CTAB, no respiratory distress, good air movement, no rales/rhonchi, no wheezing Abdomen: soft, fundus(cm) (firm just above umbilicus), bowel sound present, other (appropriately TTP) Musculoskeletal: normal gait and station, FROM in all four extremities Neurological: cranial nerves II through XII intact, no focal deficit Skin: no rash, good tugor, no jaundice : incision healing well, no erythema, no edema, no drainage, other ( adri intact) Lymphatic: no unusual bruising or bleeding Psychiatric: intact recent and remote memory, good judgement and insight, normal mood and affect - Pelvic Exam : no discharge, no edema, normal lochia FMR OB PN: A/P - Problem List (1) Term Status: Acute Code(s): Z34.90 - ENCNTR FOR SUPRVSN OF NORMAL , UNSP, UNSP TRIMESTER (2) Low BMI Status: Acute Code(s): [id number] - (3) Acute blood loss anemia Status: Acute Code(s): D62 - ACUTE POSTHEMORRHAGIC ANEMIA (4) Influenza B Status: Acute Code(s): J10.1 - FLU DUE TO OTH IDENT INFLUENZA VIRUS W OTH RESP MANIFEST (5) Post-op pain Status: Acute Code(s): G89.18 - OTHER ACUTE POSTPROCEDURAL PAIN Disposition: 24 yo F G3 now P2103 who is PP day #3 s/p rLTCS @ 39.4 wks. PP day #3 s/p rLTCS: - s/p C/S x2, now x3 with delivery from Sunday - Tolerating PO, ambulating, voiding & passing gas normally but no BM. Breast feeding well. Bleeding < period with no clots noted. Pain well controlled on PO meds only. - Continue routine post-C/S care. Consider removing adri before likely d/c home today vs. having her f/u @ [facility] on 03/24/19 for removal. Acute Blood loss anemia: - H/H down from 13.2/39.4 on admission to 9.7/30.5 on post-op day #1. QBL of 758 but calculated EBL 1129mL. VS remain stable & patient asymptomatic. - Will continue PO iron & continue PNVs upon d/c. Influenza B: - Flu swab + on admission. Continue tamiflu & droplet precautions. Tamiflu scripts for other household members provided. -Tylenol PRN for fever. Low BMI - Aware, encouraged weight gain & increased calories for duration of . h/o cholestasis in prior - Aware, no elevated bile acids this . h/o SGA infants - Aware, mom has small body habitus. TAGA male this delivery. with persistent R UT dilatation: - Renal US done yesterday & showed severe R-sided hydronephrosis. Pedi Uro recommended starting abx PPX with Amoxicillin QD & infant will need to f/u with them in 2-3 weeks from date of discharge. h/o delivery 2/2 cholestasis in prior - Aware, medically indicated delivery. Has not required PPX this . Dispo: Recovering well, pain well controlled. Continue routine post- care. Will d/c home today w/ instructions to f/u @ [facility] on Sunday for staple removal. Discussion: Date/Time: 03/20/19 1914 This H&P was discussed with Dr. Weaver who agrees with the above documentation and plan. Addendum - Attending - Attending Attestation Date/Time: 03/20/19 1232 I personally evaluated the patient and discussed the management with Dr. Pop I agree with the History, Examination, Assessment and Plan documented above with any addition or exceptions noted below. POD/PPD#3 Patient doing well. Pain controlled. Incision healing well. No complications. Asymptomatic from flu. Breast feeding improving. Lochia mild. Ok to dc to home. Will need appt for stable removal on Sunday. Marcelle
[2019-03-20] MEDS: Prenatal Vitamin 1 TAB PO SCH (08:01)
[2019-03-20] MEDS: Docusate Calcium (SURFAK) 240 MG CAP PO SCH (08:01)
[2019-03-20] MEDS: HYDROcodone/Acetaminophen 5/325 mg Tablet PO PRN (08:01)
[2019-03-20] MEDS: Oseltamivir 75 MG CAP PO SCH (08:02)
[2019-03-20] MEDS: Ibuprofen 800 MG TAB PO SCH ×2 (08:02→15:06)
[2019-03-20] MEDS: Ferrous Sulfate 325 MG TAB PO SCH (08:02)
[2019-03-20 08:26] VITALS: BP 111/64
== END 2019-03-20 16:45 | disposition home or self-care (01) | DRG 787 ==
LOC: L&D 05:47 → 3SW 12:13
PROVIDERS: ADMIT Student in an Organized Health Care Education/Training Program; ATTEND Student in an Organized Health Care Education/Training Program
PROC: 10D00Z1 Extraction of Products of Conception, Low, Open Approach (ICD-10-PCS; principal; 2019-03-17)
DX: O34.211 Maternal care for low transverse scar from previous cesarean delivery (principal); D62 Acute posthemorrhagic anemia; O72.1 Other immediate postpartum hemorrhage; Z3A.39 39 weeks gestation of pregnancy; Z37.0 Single live birth; O62.2 Other uterine inertia; O99.824 Streptococcus B carrier state complicating childbirth; J10.1 Influenza due to other identified influenza virus with other respiratory manifestations; O99.52 Diseases of the respiratory system complicating childbirth; O90.81 Anemia of the puerperium
CPT/HCPCS: 36415; 51702; 85027; 86780; 86850; 86900; 86901; 87340; 87804; J0690; J1885; J2210; J2250; J2274; J2405; J2590; J2765; J3010